=== PATIENT | male | born 1940 | race Caucasian/White ===

== ENCOUNTER 2025-07-16 23:11 | Emergency (ER) | payer MEDICARE ==
[~2025-07-16] VITALS: Ht 180.3 cm; Wt 65.7 kg
[~2025-07-16 23:11] MED LIST: APIX5TAB3 PO; HYDR12.522 PO; MULT-785 PO; NOR5T PO; SOTA80TA PO
[2025-07-16 23:31] VITALS: TEMP 97.6
[2025-07-17] MEDS: LidoCAINE 2% Topical Jelly 11mL syringe (UROJET) TOP ONE (00:30)
[2025-07-17] MEDS ORDERED: METO-395 PO (00:48)
[2025-07-17] MEDS ORDERED: WARF-55 PO (00:48)
[2025-07-17] MEDS ORDERED: [UNRECOGNIZED DRUG - OTHER] PO (00:48)
--- NOTE | 2025-07-17 01:10 | Physician Documentation ---
History of Present Illness ~ Chief Complaint: Urinary Retention Stated Complaint: NOT URINATING Time Seen by MD: 23:38 Primary Medical Doctor: dr higgins Mode of Arrival: POV HPI 84 year old male with acute urinary retention and subprapubic discomfort. Denies fever, N/V/D. Reports he has been taking a new medication, metoprolol, for several days, as well as benadryl twice per day for his sinuses for several weeks. Medication Reconciliation Allergies: Coded Allergies: No Known Allergies (Unverified , 03/22/13) Scheduled Amlodipine* (Norvasc*), 10 MG PO DAILY, (Reported) Metoprolol Succinate (Metoprolol Succinate), 1 TAB PO DAILY, (Reported) Warfarin Sodium (Warfarin Sodium), 1 TAB PO DAILY, (Reported) [protstate support], 1 PO BID, (Reported) Discontinued Medications Apixaban (Eliquis), 1 TAB PO Q12H Discontinued Reason: patient no longer taking Hydrochlorothiazide* (Microzide*), 25 MG PO DAILY, (Reported) Discontinued Reason: patient no longer taking Multivitamins* (Multivitamin*), 1 EACH PO DAILY, (Reported) Discontinued Reason: patient no longer taking Sotalol Hcl (Sotalol), 0.5 TAB PO Q12H Discontinued Reason: patient no longer taking Past Medical History Past Medical History: Hypertension, Hernia Past Surgical History: orthopedic surgeries, other Other Past Surgical History: Hernia Repair Alcohol Use: Occasionally Drug Use: marijuana Review of Systems All Other Systems at this time: Reviewed and Negative Physical Exam Vital Signs: RN Vital Signs have been reviewed: Yes, Temperature: 97.6, Source: Temporal, Heart Rate: 72, Respiratory Rate: 18, BP: 126/78, Pulse Oximetry: 94, Weight: 65.700 Physical Exam HEENT: PERRL, moist oral mucosa, EOMI Pulmonary: No respiratory distress MSK: no deformity Skin: w/d/i, no rash Neuro: alert, nonfocal Psych: normal affect Progress Results/Orders Results/Orders Orders - LIT QUINTERO MD * (A) Pineda- Protocol * Q12H@07,19 (07/16/25 23:39) Urinalysis, Cult If Indicated (07/17/25 00:42) Completed Orders - LIT QUINTERO MD Lidocaine 2% Jelly 11ml Syr (Glydo-Lidoc (07/16/25 23:40) Medications Received in ER Medications (Trade) Dose Ordered Sig/Curry Route PRN Reason Start Time Stop Time Status Last Admin Dose Admin (GLYDO-Lidocaine 2% Topical Jelly 11mL syringe) 1 applic ONCE ONCE TOP 07/16/25 23:40 07/16/25 23:41 DC 07/17/25 00:30 1 APPLIC Vital Signs 07/16/25 07/17/25 23:31 00:38 Temp 97.6 Pulse 68 72 Resp 15 18 B/P (MAP) 126/78 (94) Pulse Ox 99 94 Medical Decision Making Findings 84 year old male with urinary retention. Pineda, symptoms improved, large urine output, pineda care teaching and home to follow up with PCP/urologist. Additional Comment Ddx = urinary retention, BPH, prostate cancer Departure Disposition: 01 HOME / SELF CARE / HOMELESS Impression: Primary Impression: Urinary retention Discharge Instructions: Acute Urinary Retention, Male Referrals: NO PRIMARY CARE PROVIDER (PCP) Education Educated: Patient Educated regarding: diagnosis, treatment, prognosis, need for follow up Signature Scribe Signature: . Attestation: . LIT QUINTERO MD Jul 17, 2025 01:10
[2025-07-17 01:21] LABS: LEUKOCYTE ESTERASE ,URINE NEGATIVE (Neg); NITRITES, URINE NEGATIVE (Neg); OCCULT BLOOD,URINE MODERATE (Neg); UA COLLECTION TYPE FOLEY CATH
[2025-07-17 01:27] LABS: MUCUS STRANDS FEW /LPF (Neg); SQUAMOUS EPITHELIAL CELL,UR FEW /LPF (FEW)
[2025-07-17 01:44] VITALS: BP 135/85; PULSE 71; RESP 16; O2SAT 95
== END 2025-07-17 01:47 | disposition home or self-care (01) ==
LOC: ER 23:12
DX: R33.9 Retention of urine, unspecified (principal); I10 Essential (primary) hypertension; Z98.890 Other specified postprocedural states
CPT/HCPCS: 51702; 51798; 81001; 99284; A4314; A4358

== ENCOUNTER 2025-07-31 07:10 | Emergency (ER) | payer MEDICARE ==
[~2025-07-31] VITALS: Ht 180.3 cm; Wt 75.0 kg
[~2025-07-31 07:10] MED LIST changes: -APIX5TAB3 PO; -HYDR12.522 PO; +METO-395 PO; -MULT-785 PO; -SOTA80TA PO; +WARF-55 PO; +[UNRECOGNIZED DRUG - OTHER] PO
[2025-07-31 07:22] VITALS: PULSE 83; TEMP 97
--- NOTE | 2025-07-31 07:43 | Physician Documentation ---
History of Present Illness ~ Chief Complaint: Urinary Retention Stated Complaint: CATH ISSUES Time Seen by MD: 07:14 Primary Medical Doctor: dr higgins Source: patient Mode of Arrival: POV Exam Limitations: no limitations HPI Patient with a history of AFib and a pacemaker on blood thinners in with urinary retention. He states he was seen here about 2 weeks ago and had a Nguyen catheter put in. It was taken out 5 days ago and he struggled for a couple of days to urinate and he has not been able to urinate since yesterday afternoon. He is having some pain in his lower abdomen. He does take Flomax. PCP is working on a referral for Urology. He has been taking some supplements for his prostate for about 7 years now. Patient also reports a gout flare in his right foot over the past few days. Does not take anything on a daily basis for this. Medication Reconciliation Allergies: Coded Allergies: No Known Allergies (Unverified , 07/31/25) Scheduled Amlodipine* (Norvasc*), 10 MG PO DAILY, (Reported) Cephalexin*Monohydrate* (Keflex*), 1 CAP PO BID Colchicine (Colchicine), 1 CAP PO DAILY Metoprolol Succinate (Metoprolol Succinate), 1 TAB PO DAILY, (Reported) Warfarin Sodium (Warfarin Sodium), 1 TAB PO DAILY, (Reported) [protstate support], 1 PO BID, (Reported) Past Medical History Past Medical History: Hypertension, Hernia Past Surgical History: orthopedic surgeries, other Other Past Surgical History: Hernia Repair Alcohol Use: Occasionally Drug Use: marijuana Review of Systems All Other Systems at this time: Reviewed and Negative Physical Exam Vital Signs: Temperature: 97.0, Source: Temporal, Heart Rate: 83, Respiratory Rate: 16, BP: 119/78, Pulse Oximetry: 96, Weight: 75.000 General Appearance: alert Neck: normal inspection, full range of motion Respiratory: no respiratory distress Chest: no accessory muscle use Gastrointestinal: other Gastrointestinal Mildly tender in the lower abdomen, mild distention, firm Extremities: normal range of motion Extremities Right foot: Mild swelling with mild erythema throughout, tender, good pulses Skin: normal color, warm/dry Neurologic: oriented x4 Psychiatric: normal mood/affect Progress Results/Orders Results/Orders Orders - ANDI PARRA MD Ct Abdomen Pelvis (07/31/25 08:30) Cult Urine + [facility] (07/31/25 08:54) Completed Orders - ANDI PARRA MD Cbc/Diff (07/31/25 07:29) BMP (07/31/25 07:29) * Iv Access / Saline Lock * (07/31/25 07:29) * (A) Nguyen- Protocol * Q12H@07,19 (07/31/25 07:29) Lidocaine 2% Jelly 11ml Syr (Glydo-Lidoc (07/31/25 07:30) Ct Abdomen Pelvis (07/31/25 08:30) Iohexol 300mg/Ml 100ml Inj. (Omnipaque-3 (07/31/25 08:43) Ua W/Microscopic, Cult If Ind (07/31/25 08:43) Ceftriaxone/M1v-Eeoubnxi 1gm (Rocephin 1 (07/31/25 09:15) Medications Received in ER Medications (Trade) Dose Ordered Sig/Curry Route PRN Reason Start Time Stop Time Status Last Admin Dose Admin Ceftriaxone Sodium 50 ml @ 100 mls/hr ONCE ONCE IV 07/31/25 09:15 07/31/25 09:44 DC 07/31/25 09:56 100 MLS/HR Vital Signs 07/31/25 07/31/25 07/31/25 07:22 07:50 11:06 Temp 97.0 Pulse 83 Resp 16 16 16 B/P (MAP) 119/78 132/79 Pulse Ox 96 95 Laboratory Tests Test 07/31/25 07:47 07/31/25 08:43 White Blood Count 7.5 Red Blood Count 4.00 L Hemoglobin 14.4 Hematocrit 42.7 Mean Corpuscular Volume 106.7 H Mean Corpuscular Hemoglobin 36.0 H Mean Corpuscular Hemoglobin Concent 33.8 Red Cell Distribution Width 13.7 Platelet Count 228 Mean Platelet Volume 9.4 Neutrophils (%) (Auto) 78.1 H Lymphocytes (%) (Auto) 11.7 L Monocytes (%) (Auto) 9.3 Eosinophils (%) (Auto) 0.3 Basophils (%) (Auto) 0.6 Neutrophils # (Auto) 5.9 Lymphocytes # (Auto) 0.9 L Monocytes # (Auto) 0.7 Eosinophils # (Auto) 0.0 Basophils # (Auto) 0.0 CBC Comment Sodium Level 138 Potassium Level 4.1 Chloride Level 100 Carbon Dioxide Level 28.3 Anion Gap 10 Blood Urea Nitrogen 10 Creatinine 0.74 Estimated GFR/1.73 m2 > 90 BUN/Creatinine Ratio 13.5 Glucose Level 130 H Calcium Level 9.3 Albumin 3.7 Chemistry Comments Urine Specimen Description Nguyen cath Urine Color Yellow Urine Clarity Turbid Urine pH 6.5 Urine Specific Corder 1.015 Urine Protein Trace Urine Glucose (UA) Negative Urine Ketones Negative Urine Occult Blood Large H Urine Nitrite Positive H Urine Bilirubin Negative Urine Urobilinogen 0.2 Urine Leukocyte Esterase Large H Urine RBC 20-50 Urine WBC Tntc H Urine WBC Clumps Many Urine Squamous Epithelial Cells None seen Urine Bacteria 4+ Urine Mucus None seen Urine Culture Indicated Indicated Volume Urine Centrifuged 10 ml Urine Comment Microbiology Date/Time Source Procedure Growth Status 07/31/25 08:54 Urine Nguyen Cath Urine Culture - Preliminary Culture received. Resulted Medical Decision Making Additional Comment Patient in with acute urinary retention secondary to BPH. Started Flomax only 5 days ago. Also has a urinary tract infection. Gave a g of Rocephin in the ER and placing him on Keflex. Culture is pending. He is to follow up with his doctor in the next couple of weeks for recheck. If he can not get in to his doctor or Urology for which the referral is pending he is to return here to have the Nguyen removed. Discussed that Nguyen can not be in for greater than 3-4 weeks at a time. He is to return here if worsening prior to all these follow- ups as well. Placed on colchicine 2 tabs x1 and 1 tab an hour after for gout flare. CT scan only shows BPH and no other findings. Labs otherwise unremarkable. Departure Disposition: HOME / SELF CARE / HOMELESS Impression: Primary Impression: Urinary retention Additional Impressions: Urinary tract infection Qualified Codes: N30.00 - Acute cystitis without hematuria Gout flare Qualified Codes: M10.9 - Gout, unspecified Additional Impression Text Follow up with your doctor in the next couple of weeks. A Nguyen needs to be replaced every 3-4 weeks if you can not get into see anyone you need to return here by 3 weeks to get it removed. Stay on your Flomax every day. Complete your antibiotics. For the gout flare take 2 colchicine tablets at 1 time and then 1 tab 1 hour later. Return if worsening prior to follow up. Condition: Stable Discharge Instructions: Gout, [id number], Urinary Tract Infection, Adult, [id number] Referrals: NO PRIMARY CARE PROVIDER (PCP) Prescriptions Colchicine (Colchicine) 0.6 Mg Capsule 1 CAP PO DAILY for 1 Day, #3 CAP 0 Refills Take 2 tablets, then take 1 tab 1 hour later. Prov: ANDI PARRA MD 07/31/25 Cephalexin*Monohydrate* (Keflex*) 500 Mg Capsule 1 CAP PO BID, #14 CAP Prov: ANDI PARRA MD 07/31/25 Education Educated: Patient, Family Educated regarding: diagnosis, treatment, prognosis, need for follow up Signature Scribe Signature: No scribe Attestation: No scribe ANDI PARRA MD Jul 31, 2025 07:43
[2025-07-31] MEDS: LidoCAINE 2% Topical Jelly 11mL syringe (UROJET) TOP ONE (07:56)
[2025-07-31 08:17] LABS: MEAN PLATELET VOLUME 9.4 FL (7.4-10.4); RED CELL DISTRIBUTION WIDTH 13.7 % (11.5-14.5)
[2025-07-31 08:27] LABS: CREATININE 0.74 MG/DL (0.60-1.10); TOTAL CARBON DIOXIDE 28.3 MMOL/L (24-32); eCRCL 82 ML/MIN; eGFR > 90 ML/MIN
[2025-07-31] MEDS ORDERED: iohexol 300mg/ml 100ml inj. ONE (08:43)
[2025-07-31 08:53] LABS: LEUKOCYTE ESTERASE ,URINE LARGE (Neg); NITRITES, URINE POSITIVE (Neg); OCCULT BLOOD,URINE LARGE (Neg)
[2025-07-31 08:54] LABS: UA COLLECTION TYPE FOLEY CATH
[2025-07-31 08:59] LABS: MUCUS STRANDS NONE SEEN /LPF (Neg); SQUAMOUS EPITHELIAL CELL,UR NONE SEEN /LPF (FEW)
[2025-07-31 09:00] LABS: WBC CLUMPS,URINE MANY /HPF (NEGATIVE)
--- NOTE | 2025-07-31 09:52 | RADIOLOGY REPORT ---
CT CT ABDOMEN PELVIS W/ IV CONTRAST INDICATION: urinary retention EXAM DATE: 07/31/2025 08:57 AM COMPARISON: None RADIATION DOSE: CTDIvol: 15 mGy, DLP: 726 mGy*cm PROCEDURE: Helical CT images were obtained of the abdomen and pelvis with IV contrast Sagittal and co simon reconstructions are provided. ORAL CONTRAST: None. ADDITIONAL IMAGES / REFORMATS: None All CT s cans at this medical facility are performed using dose modulation techniques as appropriate to a perf ormed exam including the following: Automated exposure control was utilized; adjustment of the MA and /or KV according to patient size; and use of iterative reconstruction technique. FINDINGS: LUNG BASE: Bibasilar atelectasis. Moderate lung emphysema. LIVER: Normal. GALLBLADDER AND BILIARY TREE: No calcified gallstones. Normal caliber wall. No intra- or extrahepatic biliary ductal dilation. PANCREAS: Normal. SPLEEN: Normal. BOWEL: Mild colonic diverticulosis. Normal appendix. ADRENALS: Normal. KIDNEYS AND URETER: Subcentimeter right renal cystic lesion. BLADDER: Nguyen in a decompressed bladder. REPRODUCTIVE ORGANS: The prostate is enlarged. LYMPH NODES:No lymphadenopathy. PERITONEUM: No ascites or free air. No other fluid collection. VESSELS: Scattered atherosclerotic calcifications are noted. RETROPERITONEUM: Normal. ABDOMINAL WALL: Right inguinal hernia repair is noted. BONES: Scattered osseous degenerative changes are noted. IMPRESSION: No acute intraabdominal abnormality. Prostatomegaly. The Nguyen catheter is seen in the decompressed b ladder.
[2025-07-31] MEDS: CefTRIAXone/D5W-Rocephin 1gm 50 ML IV ONE (09:56)
[2025-07-31] MEDS ORDERED: CEPH-585 PO (10:33)
[2025-07-31] MEDS ORDERED: COLC0.6C3 PO (10:33)
[2025-07-31 11:06] VITALS: BP 132/79; RESP 16; O2SAT 95
[2025-08-01] MEDS ORDERED: TAMS-55 PO (04:41)
[2025-08-02] MEDS ORDERED: CIPR-458 PO (15:04)
== END 2025-07-31 11:08 | disposition home or self-care (01) ==
LOC: ER 07:10
DX: N39.0 Urinary tract infection, site not specified (principal); M10.071 Idiopathic gout, right ankle and foot; I10 Essential (primary) hypertension; I48.91 Unspecified atrial fibrillation; F12.90 Cannabis use, unspecified, uncomplicated; Z79.01 Long term (current) use of anticoagulants; Z98.890 Other specified postprocedural states
CPT/HCPCS: 36415; 74177; 80048; 81001; 85025; 87088; 96365; 99285; A4314; J0696; Q9967; 87077; 87186; A4340